=== PATIENT | female | born 1975 | race African-American/Black ===

== ENCOUNTER 2016-04-02 07:52 | Inpatient (IN) | payer OTHER ==
[2016-04-01 10:28] VITALS: Ht 162.6 cm; Wt 65.0 kg
[2016-04-02] VITALS (25 sets, daily range): BP systolic 89–120; BP diastolic 46–66; PULSE 66–88; RESP 14–22
[~2016-04-02] VITALS: Ht 162.6 cm; Wt 65.0 kg
[~2016-04-02 07:52] MED LIST: ACETAMINOPHEN 1000 MG/100 ML IVPB ONE; DEXAMETHASONE 4 MG/ML 1 ML INJ ONE
[2016-04-02] MEDS ORDERED: HYDR-906 PO (08:25)
[2016-04-02] MEDS ORDERED: CYCL5TAB PO (08:25)
[2016-04-02] MEDS ORDERED: CEFAZOLIN 2 GM/50 ML (PMX) 50 ML IVPB SCH (09:00)
[2016-04-02] MEDS ORDERED: LACTATED RINGER'S 1,000 ML IV* SCH (09:00)
[2016-04-02] MEDS ORDERED: THROMBIN 5000 UNIT VIAL ONE (10:02)
[2016-04-02] MEDS ORDERED: GELATIN SIZE 100 SPONGE ONE (10:02)
[2016-04-02] MEDS ORDERED: POLYMYXIN/BACITRACIN 1L IRRIG ONE (10:02)
[2016-04-02] MEDS ORDERED: BUPIVACAINE 0.25% (MPF) 10 ML 10 ML VIAL ONE (10:02)
[2016-04-02] MEDS ORDERED: PROPOFOL 100 ML ONE (10:25)
[2016-04-02] MEDS ORDERED: ROCURONIUM 50 MG INJ ONE (10:26)
[2016-04-02] MEDS ORDERED: LIDOCAINE 2% (SDV) 5 ML INJ ONE (10:26)
[2016-04-02] MEDS ORDERED: SUCCINYLCHOLINE CHLORIDE 100 MG/5 ML SYG IV ONE (10:26)
[2016-04-02] MEDS ORDERED: MIDAZOLAM 1 MG/ML 2 ML INJ ONE (10:28)
--- NOTE | 2016-04-02 10:28 | HPN ---
Date/Time of Note Date/Time of Note DATE: 04/02/16 TIME: 10:28 Interval H&P Admission Note Pt. seen H&P reviewed: No system changes JASON LAINEZ MD Apr 02, 2016 10:28
[2016-04-02] MEDS ORDERED: hydrALAzine 20 MG INJ ONE (11:06)
[2016-04-02] MEDS ORDERED: LABETALOL HCL 20MG INJ ONE (11:27)
[2016-04-02] MEDS ORDERED: ONDANSETRON 4 MG INJ ONE (11:42)
[2016-04-02] MEDS ORDERED: NEOSTIGMINE 3 MG/3 ML SYRINGE ONE (11:57)
[2016-04-02] MEDS ORDERED: GLYCOPYRROLATE 1 MG INJ ONE (11:57)
--- NOTE | 2016-04-02 12:21 | RADRPT ---
PROCEDURE: XR Lumbar Spine one view. CLINICAL INDICATION: Low back pain. Intraoperative. TECHNIQUE: Prone portable cross-table lateral. COMPARISON: No prior studies are available for comparison. FINDINGS: For the purposes of this report, the last apparent true disc level is considered to be L5-S1. Based on this, the posterior needle markers are present at the L4 level and the L5-S1 level. IMPRESSION: 1. Intraoperative imaging as described above. RPTAT: QQ .Catracho Garcia MD, MD Date Time Electronically viewed and signed by .Catracho Garcia MD, MD on 04/02/2016 12:21 .R/
--- NOTE | 2016-04-02 12:21 | RADRPT ---
PROCEDURE: XR Lumbar Spine one view. CLINICAL INDICATION: Low back pain. Intraoperative. TECHNIQUE: Prone portable cross-table lateral. COMPARISON: Prior study done earlier the same day. FINDINGS: For the purposes of this report, the last apparent true disc level is considered to be L5-S1. Based on this, the posterior surgical instrument is present overlying the L5-S1 level. IMPRESSION: 1. Intraoperative imaging as described above. RPTAT: QQ .Catracho Garcia MD, MD Date Time Electronically viewed and signed by .Catracho Garcia MD, on 04/02/2016 12:21 .R/
[2016-04-02] MEDS: HYDROmorphONE (0.2 MG/ML) 10ML SYG IV PRN ×3 (12:28→12:42)
[2016-04-02] MEDS: HYDROmorphONE 0.2 MG/ML PCA IV SCH ×2 (12:29→22:01)
[2016-04-02] MEDS ORDERED: NALOXONE (0.4 MG/ML) INJ IV PRN (12:30)
[2016-04-02] MEDS ORDERED: ZOLPIDEM 5 MG TAB PO PRN (12:30)
[2016-04-02] MEDS ORDERED: DIAZEPAM 5 MG/ML SYG IM PRN (12:30)
[2016-04-02] MEDS ORDERED: HYDROmorphONE (0.2 MG/ML) 10ML SYG IV PRN ×2 (12:30)
[2016-04-02] MEDS ORDERED: BETHANECHOL 25 MG TAB PO PRN (12:30)
[2016-04-02] MEDS ORDERED: DIAZEPAM 5 MG TAB PO PRN (12:30)
[2016-04-02] MEDS ORDERED: CEPASTAT LOZENGE MT PRN (12:30)
[2016-04-02] MEDS ORDERED: FENTAnyl 50 MCG/ML VIAL IV PRN ×3 (12:30)
[2016-04-02] MEDS ORDERED: NACL 0.9% 3 ML SYG IV SCH (12:30)
[2016-04-02] MEDS ORDERED: LABETALOL HCL 20MG INJ IV PRN (12:30)
[2016-04-02] MEDS ORDERED: ACETAMINOPHEN 325 MG TAB PO PRN (12:30)
[2016-04-02] MEDS ORDERED: MEPERIDINE 25 MG INJ IV PRN (12:30)
[2016-04-02] MEDS ORDERED: hydrALAzine 20 MG INJ IV PRN (12:30)
[2016-04-02] MEDS ORDERED: AL HYDROX/MG HYDROX/SIMETH 30 ML CUP PO PRN (12:30)
[2016-04-02] MEDS ORDERED: DIPHENHYDRAMINE 50 MG CAP PO PRN (12:30)
[2016-04-02] MEDS ORDERED: ONDANSETRON 4 MG INJ IV PRN (12:30)
--- NOTE | 2016-04-02 13:18 | OPR ---
DATE OF OPERATION: 04/02/2016 PREOPERATIVE DIAGNOSIS: Herniated disk, L5 to S1 on the right. POSTOPERATIVE DIAGNOSIS: Herniated disk, L5 to S1 on the right. OPERATION PROCEDURES: 1. Right hemilaminotomy, L5. 2. Microdiskectomy, L5 to S1 on the right. 3. Medial facetectomy and foraminotomy, L5 to S1 on the right. 4. Cosmetic wound closure (2.6 cm). 5. Lateral localized lumbar radiographs (2). 6. Intraoperative nerve monitoring (45 minutes) SURGEON: Prasanna Gonzalez MD ENVIRONMENTAL SCIENTISTS: MICHELLE Todd ANESTHESIA: General endotracheal. ANESTHESIOLOGIST: Simón Kothari MD ESTIMATED BLOOD LOSS: 10 mL, none replaced. DRAINS: Two medium Hemovac drains deployed. COMPLICATIONS: None. PERTINENT HISTORY AND PHYSICAL: This is a 40-year-old female with persistent back and right leg arlyn n which has been unrelieved by conservative management following industrial injury of 11/16/2015. S he has had appropriate care since that time, has remained symptomatic. She has undergone a number o f diagnostic studies including an MRI of the lumbar spine which demonstrated herniation of the L5 to S1 disk on the right. Treatment options were discussed with the patient, she elected to proceed wi th surgery. OPERATIVE FINDINGS AT SURGERY: A moderate right paracentral herniation at L5 to S1 was confirmed. The baseline intraoperative nerve monitoring revealed a decrease in the right L5 potential of 40%, a nd the right S1 potential of 30%. These both returned to normal at the completion of surgery. OPERATIVE PROCEDURE: With the patient in supine position after satisfactory induction of general en dotracheal anesthesia by Dr. Kothari, the patient was turned to the prone kneeling position over the [facility] frame. All pressure points were carefully padded. The back was prepped and draped in the [facility] sterile fashion. Athrombic pumps were applied to the legs below the knees to prevent venous sta sis during and after the procedure. Two spinal needles were placed next to what was felt to be the L4 and L5 spinous processes, lateral roentgenogram was taken to confirm anatomic localization. A 2.6 cm incision was then carried out in the midline over the spinous process of L5 after the skin was infiltrated with 0.25% Marcaine without epinephrine for postoperative analgesia. Superficial re tractors were placed and hemostasis secured with electrocautery. Throughout the procedure, copious amounts of antibacterial irrigating solution were used to periodically irrigate the wound. The fasc ia was then incised in the midline with a hot knife and unilateral subperiosteal dissection carried out at L5 to S1 on the right. Deep retractors were placed and deep hemostasis secured with electroc autery. A second intraoperative radiograph was taken with a deep retractor at what was felt to be t he L5 to S1 interspace, and this was confirmed with the second x-ray. A right hemilaminotomy of L5 was then carried out using Leksell rongeur, Kerrison punches and curettes. Ligamentum flavum was ex cised with sharp dissection. The operating microscope was then moved into place. A medial facetect piotr and foraminotomy was accomplished using small hand osteotome, mallet, Kerrison punches and curet grecia. The S1 root was then mobilized medially and protected with D'Errico nerve retractor using micr odissection technique. This revealed a herniation of the L5 to S1 disk on the right. A 15 blade kn leo was then used to cut a rectangular window in the annulus and posterior longitudinal ligament and multiple degenerative disk fragments were harvested with pituitary rongeurs and sent to laboratory for pathologic study. Additional fragments were harvested using Gregoria curettes. A thorough searc h of the floor of the canal was made with an arthroscopic probe and no additional fragments were enc ountered. The epidural hemostasis was secured with bipolar electrocautery on a low setting. The an esthesiologist then asked to perform a Valsalva maneuver at 40 mmHg and no spinal fluid leak was not ed. The wound was then closed in layers over 2 medium Hemovac drains, one below the fascia, one above th e fascia using #1 Vicryl [id number] approximating sutures in deep paralumbar musculature and de ep fascia of the back, 2-0 Vicryl subcuticular cosmetic closing suture, 2-0 Vicryl sutures on the srivastava bcutaneous tissue, and a 4-0 Vicryl subcuticular cosmetic closing suture on the skin. Dermabond and sterile compressive dressings were applied. Patient having tolerated the procedure well, was then turned to the supine position onto her bed and extubated by Dr. Kothari. She was transported to [facility] room in satisfactory condition. At the conclusion of the procedure, sponge, instrument, and need le counts were all correct. NEED FOR MARINE ENGINEERING TECHNICIANS: During this spinal surgical procedure, my assistant pastry chef was used to retrac t and protect the spinal nerves and dural sac. My assistant pastry chef also employed the suction catheters to e vacuate blood from the surgical field to improve visualization of the neural structures. The assista nt was medically necessary to facilitate the completion of the surgery in a safe and expeditious man ner. [facility] [place] regulations, as well as hospital bylaws, preclude the use of non-licensed [facility] care personnel such as operating room technicians, to perform these functions. Throughout the procedure, neural monitoring was carried out by [email or web address] [place] including EMG, SSEP and MEP monitoring of the L3, L4, L5 and S1 nerve roots bilaterally along with s tawnya cord potentials. These were interpreted by a neurologist employed by [employer]. Dictated By: PRASANNA GONZALEZ MD TM/NTS Conf#: [id number] DID#: [id number] CC: NICANOR SCHAEFER DO;*EndCC*
[2016-04-02] MEDS: DEXTROSE 5%-0.45% NACL 1,000 ML IV SCH ×2 (13:45→23:11)
--- NOTE | 2016-04-02 14:11 | PN ---
Date/Time of Note Date/Time of Note DATE: 04/02/16 TIME: 14:05 Assessment/Plan VTE Prophylaxis VTE Prophylaxis Intervention: anti-embolic stocking Lines/Catheters IV Catheter Type (from Nrsg): Saline Lock Assessment/Plan Assessment/Plan Status Post lumbar disectomy. Continue post operative care as per Dr Gonzalez. PT will ambulate patient this afternoon. Subjective 24 Hr Interval Summary Free Text/Dictation The patient is a pleasant 40 y/o female who had lumbar discectomy this morning due to a prior work related lumbar injury. She is alert and has the expected post operative pain. She is comfortable. She has no otehr complaints. Musculoskeletal: back pain Exam/Review of Systems Vital Signs Vitals Vital Signs Date Time Temp Pulse Resp B/P Pulse Ox O2 Delivery O2 Flow Rate FiO2 04/02/16 13:40 97.8 88 18 101/50 98 Room Air Exam Psych: nl mood/affect Head: normocephalic Eyes: EOMI Respiratory: clear to auscultation, normal air movement Cardiovascular: nl pulses, regular rate and rhythm Gastrointestinal: nl liver, spleen, non-tender, soft Musculoskeletal: nl extremities to inspection Neurological: nl mental status Medications Medications Current Medications Dextrose/Sodium Chloride (D5-1/2ns) 1,000 ml @ 100 mls/hr Q10H IV Last administered on 04/02/16t 13:45; Admin Dose 100 MLS/HR; Start 04/02/16 at 12:06 Acetaminophen/ Hydrocodone Bitart ([place] (5/325)) 1 tab Q4H PRN PO PAIN LEVEL 1 -5; Start 04/02/16 at 17:00 Acetaminophen/ Hydrocodone Bitart 2 tab 2 tab Q4H PRN PO PAIN LEVEL 6-10; Start 04/02/16 at 17:00 Cefazolin Sodium (Ancef 1 Gm/50 ml (Pmx)) 50 ml @ 100 mls/hr Q6 IVPB ; Start at 18:00; Stop 04/03/16 at 12:29 Zolpidem Tartrate (Ambien) 5 mg HS PRN PO INSOMNIA; Start 04/02/16 at 12:30 Prochlorperazine (Compazine) 10 mg Q4H PRN PO NAUSEA AND/OR VOMITING; Start at 17:00 Trimethobenzamide HCl (Tigan) 200 mg Q4H PRN IM NAUSEA AND/OR VOMITING; Start 04/02/16 at 17:00 Ondansetron HCl (Zofran Inj) 4 mg Q6H PRN IV NAUSEA AND/OR VOMITING; Start at 17:00 Al Hydrox/Mg Hydrox/Simethicone (Mag-Al Plus) 15 ml Q4H PRN PO CONSTIPATION; Start 04/02/16 at 12:30 Docusate Sodium (Colace) 100 mg BID PO ; Start 04/03/16 at 09:00 Acetaminophen (Tylenol Tab) 650 mg Q4H PRN PO TEMP GREATER THAN 101F OR DIEZ; Start 04/02/16 at 12:30 Ascorbic Acid (Vitamin C) 1,000 mg BID PO ; Start 04/03/16 at 09:00 Ferrous Sulfate (Ferrous Sulfate (Ec)) 325 mg TID PO ; Start 04/03/16 at 09:00 Ranitidine HCl (Zantac) 150 mg BID PO ; Start 04/02/16 at 21:00 Diazepam (Valium) 5 mg Q4H PRN PO MUSCLE SPASMS; Start 04/02/16 at 12:30 Diazepam (Valium) 5 mg Q4H PRN IM MUSCLE SPASMS; Start 04/02/16 at 12:30 Phenol (Cepastat Lozenge) 1 lozenge PRN PRN MT SORE THROAT; Start 04/02/16 at 12:30 Bethanechol Chloride (Urecholine) 25 mg PRN PRN PO UNABLE TO VOID; Start at 12:30 Diphenhydramine HCl (Benadryl) 50 mg Q6H PRN PO PRURITUS; Start 04/02/16 at 12: 30 Hydromorphone HCl (Dilaudid SALES CONSULTANT) Q4PCA IV Last administered on 04/02/16t 12:29 ; Admin Dose 6 MG; Start 04/02/16 at 12:30 Naloxone HCl (Narcan) 0.2 mg Q2M PRN IV RR 8 BREATHS/MIN OR LESS; Start at 12:30 NICANOR SCHAEFER MD Apr 02, 2016 14:11
[2016-04-02] MEDS ORDERED: TRIMETHOBENZAMIDE 100 MG/ML VIAL IM PRN (17:00)
[2016-04-02] MEDS ORDERED: HYDROCODONE/APAP (5/325) TAB PO PRN ×2 (17:00)
[2016-04-02] MEDS ORDERED: PROCHLORPERAZINE 10 MG TAB PO PRN (17:00)
[2016-04-02] MEDS: ONDANSETRON 4 MG INJ IV PRN ×2 (17:35→23:11)
[2016-04-02] MEDS: CEFAZOLIN 1 GM/50 ML (PMX) 50 ML IVPB SCH ×2 (17:35→23:11)
[2016-04-02] MEDS: RANITIDINE 150 MG TAB PO SCH (23:11)
[2016-04-03] MEDS: HYDROmorphONE 0.2 MG/ML PCA IV SCH (04:34)
[2016-04-03 05:32] LABS: HEMATOCRIT 37.3 % (37.0-47.0); HEMOGLOBIN 12.7 g/dl (12.0-16.0)
[2016-04-03 05:59] LABS: POTASSIUM 3.7 mmol/L (3.5-5.1)
[2016-04-03 06:01] LABS: CREATININE 0.55 mg/dl (0.44-1.00)
[2016-04-03 06:02] LABS: CALCIUM 8.4 mg/dl (8.4-10.2)
[2016-04-03] MEDS: CEFAZOLIN 1 GM/50 ML (PMX) 50 ML IVPB SCH ×2 (06:06→11:28)
[2016-04-03] MEDS: ONDANSETRON 4 MG INJ IV PRN ×2 (06:10→12:56)
--- NOTE | 2016-04-03 07:24 | PN ---
Date/Time of Note Date/Time of Note DATE: 04/03/16 TIME: 07:22 Assessment/Plan Lines/Catheters IV Catheter Type (from Nrsg): Saline Lock Puckett in Place (from Nrsg): No Subjective 24 Hr Interval Summary Patient is postop day #1 for microdiscectomy L5-S1 on the right. She had episodes of emesis. Her sodium is 134. Hemoglobin 12.7. Vital signs are stable. She feels better this morning. Back pain is well controlled and leg pain is improving. Hemovac drain was 20 cc overnight and I removed this, incision is healing well. Strength in the right anterior tib and EHL is 4/5. Will DC DIRECTOR OF STUDENT SERVICES, which was likely contributing to her emesis. Plan today is for mobilization and possible discharge if she is able to tolerate activity and diet. Exam/Review of Systems Vital Signs Vitals Vital Signs Date Time Temp Pulse Resp B/P Pulse Ox O2 Delivery O2 Flow Rate FiO2 04/03/16 04:01 17 04/02/16 20:30 98.5 81 100/59 100 04/02/16 13:40 Room Air Intake and Output 04/02/16 04/02/16 04/03/16 15:00 23:00 07:00 Intake Total 1600 ml 1080 ml 1800 ml Output Total 95 ml 280 ml Balance 1505 ml 1080 ml 1520 ml Results Result Diagram: 04/03/16 0424 04/03/16 0424 BABAR ROA Apr 03, 2016 07:24
[2016-04-03 08:02] VITALS: BP 105/53; RESP 16
[2016-04-03] MEDS: DEXTROSE 5%-0.45% NACL 1,000 ML IV SCH (08:06)
[2016-04-03] MEDS: FERROUS SULFATE (EC) 325 MG TAB PO SCH ×2 (08:57→13:00)
[2016-04-03] MEDS: RANITIDINE 150 MG TAB PO SCH (08:57)
[2016-04-03] MEDS ORDERED: ASCORBIC ACID 500 MG TAB PO SCH (09:00)
[2016-04-03] MEDS ORDERED: DOCUSATE SODIUM 100 MG CAP PO SCH (09:00)
[2016-04-03] MEDS ORDERED: HYDROmorphONE 1 MG/ML SYG IV PRN (10:30)
[2016-04-03] MEDS ORDERED: METOCLOPRAMIDE 10 MG INJ IV PRN (11:30)
--- NOTE | 2016-04-03 15:28 | PN ---
Date/Time of Note Date/Time of Note DATE: 04/03/16 TIME: 15:14 Assessment/Plan VTE Prophylaxis VTE Prophylaxis Intervention: SCD's Lines/Catheters IV Catheter Type (from Nrs): Peripheral IV Urinary Cath still in place: No Assessment/Plan Assessment/Plan Status post lumbar discectomy L5-S1. No reported persistence of nausea or vomiting. The patient has improved, off of CUT OFF SAW OPERATOR and Hemovac. Tolerating PO food and pain medications. Able to ambulate independently. Continue post operative care as per Dr. Gonzalez. Discharge as per surgical team. Subjective 24 Hr Interval Summary Free Text/Dictation The patient is a pleasant 40 y/o female s/p microdiscectomy L5-S1 on 04/02/[address] Gonzalez for her work related lumbar injury. The patient was nauseaous and vomited this morning. She recieved Zofran and Reglan with good control of her symptoms. Dilaudid CUT OFF SAW OPERATOR was discontinue as it was suspected to be the culprit due to over use. The patient is tolerating PO hydrocodone-APAP 5-325mg with good pain control. She has been able to micturate. No BM yet. Hermovac was removed this morning. She continues to be on IV NS @100ml/hr. Constitutional: improved, no complaints Respiratory: no complaints Cardiovascular: no complaints Gastrointestinal: flatus, no complaints, No blood, No constipation, No diarrhea, No nausea, No passing stool, No vomiting Musculoskeletal: back pain, No swelling Neurologic: focal-weakness Psychological: nl mood/affect, no complaints Exam/Review of Systems Vital Signs Vitals Vital Signs Date Time Temp Pulse Resp B/P Pulse Ox O2 Delivery O2 Flow Rate FiO2 04/03/16 08:02 98.1 63 16 105/53 97 04/02/16 13:40 Room Air Intake and Output 04/02/16 04/02/16 04/03/16 15:00 23:00 07:00 Intake Total 1600 ml 1080 ml 1800 ml Output Total 95 ml 280 ml Balance 1505 ml 1080 ml 1520 ml Exam Constitutional: alert, oriented, well developed, No distress Respiratory: clear to auscultation, normal air movement, No congested cough, No crackles/rales, No wheezing Cardiovascular: nl pulses, regular rate and rhythm, No bruits, No gallop, No murmurs/extra sounds, No rub Gastrointestinal: bowel sounds, nl liver, spleen, non-tender, soft, No distended, No rebound or guarding Musculoskeletal: nl extremities to inspection, other (Pain around the surgical site at the lower lumbar region L5-S1) Extremities: normal pulses, No calf tenderness, No edema, No tenderness Neurological: STATE PATROL OFFICER II-XII intact, DTR's symmetric, focal weakness (EHL weakness noted on the right 4+/5. Normal sensations bilaterally.), nl mental status, nl speech, nl strength, No numbness Skin: other (Surgical site does not appear infected. No bleeding or discharge. No Hemovac.) Results Result Diagram: 04/03/1642304/03/16423 Results 24 hrs Laboratory Tests Test 04/03/16 04:24 Anion Gap 12 Blood Urea Nitrogen 4 L Calcium Level 8.4 Carbon Dioxide Level 25 Chloride Level 101 Creatinine 0.55 Glucose Level 112 Hematocrit 37.3 Hemoglobin 12.7 Potassium Level 3.7 Sodium Level 134 L Medications Medications Current Medications Dextrose/Sodium Chloride (D5-1/2ns) 1,000 ml @ 100 mls/hr Q10H IV Last administered on 04/02/16 23:11; Admin Dose 100 MLS/HR; Start 04/02/16 at 12:06 Acetaminophen/ Hydrocodone Bitart ([place] (5/325)) 1 tab Q4H PRN PO PAIN LEVEL 1 -5 Last administered on 04/03/16 14:54; Admin Dose 1 TAB; Start 04/02/16 at 17: 00 Acetaminophen/ Hydrocodone Bitart ([place] (5/325)) 2 tab Q4H PRN PO PAIN LEVEL 6 -10; Start 04/02/16 at 17:00 Zolpidem Tartrate (Ambien) 5 mg HS PRN PO INSOMNIA; Start 04/02/16 at 12:30 Prochlorperazine (Compazine) 10 mg Q4H PRN PO NAUSEA AND/OR VOMITING; Start at 17:00 Trimethobenzamide HCl (Tigan) 200 mg Q4H PRN IM NAUSEA AND/OR VOMITING Last administered on 04/03/16 09:17; Admin Dose 200 MG; Start 04/02/16 at 17:00 Ondansetron HCl (Zofran Inj) 4 mg Q6H PRN IV NAUSEA AND/OR VOMITING Last administered on 04/03/16 12:56; Admin Dose 4 MG; Start 04/02/16 at 17:00 Al Hydrox/Mg Hydrox/Simethicone (Mag-Al Plus) 15 ml Q4H PRN PO CONSTIPATION; Start 04/02/16 at 12:30 Docusate Sodium (Colace) 100 mg BID PO ; Start 04/03/16 at 09:00 Acetaminophen (Tylenol Tab) 650 mg Q4H PRN PO TEMP GREATER THAN 101F OR DIEZ; Start 04/02/16 at 12:30 Ascorbic Acid (Vitamin C) 1,000 mg BID PO ; Start 04/03/16 at 09:00 Ferrous Sulfate (Ferrous Sulfate (Ec)) 325 mg TID PO ; Start 04/03/16 at 09:00 Ranitidine HCl (Zantac) 150 mg BID PO Last administered on 04/02/16 23:11; Admin Dose 150 MG; Start 04/02/16 at 21:00 Diazepam (Valium) 5 mg Q4H PRN PO MUSCLE SPASMS; Start 04/02/16 at 12:30 Diazepam (Valium) 5 mg Q4H PRN IM MUSCLE SPASMS Last administered on 04/02/16 19:55; Admin Dose 5 MG; Start 04/02/16 at 12:30 Phenol (Cepastat Lozenge) 1 lozenge PRN PRN MT SORE THROAT Last administered on 04/02/16 19:40; Admin Dose 1 LOZENGE; Start 04/02/16 at 12:30 Bethanechol Chloride (Urecholine) 25 mg PRN PRN PO UNABLE TO VOID; Start at 12:30 Diphenhydramine HCl (Benadryl) 50 mg Q6H PRN PO PRURITUS; Start 04/02/16 at 12: 30 Naloxone HCl (Narcan) 0.2 mg Q2M PRN IV RR 8 BREATHS/MIN OR LESS; Start at 12:30 Hydromorphone HCl (Dilaudid) 0.5 mg Q1HWA PRN IV SEVERE PAIN LEVEL 7-10; Start 04/03/16 at 10:30 Metoclopramide HCl (Reglan) 10 mg Q6H PRN IV NAUSEA Last administered on 1/26/ 17at 11:28; Admin Dose 10 MG; Start 04/03/16 at 11:30 LINDA BOSS Apr 03, 2016 15:26
== END 2016-04-03 18:45 | disposition home or self-care (01) | DRG 520 ==
LOC: REC 07:52 → MS1 13:00
PROVIDERS: ADMIT Orthopaedic Surgery; ATTEND Orthopaedic Surgery
PROC: 0SB40ZZ Excision of Lumbosacral Disc, Open Approach (ICD-10-PCS; principal; 2016-04-02 10:00)
DX: M51.27 Other intervertebral disc displacement, lumbosacral region (principal)
CPT/HCPCS: 72020; 80048; 84703; 85014; 85018; 86850; 86900; 86901; 86920; 97116; 97162; 97530; J0131; J0330; J0360; J0690; J1100; J1170; J2175; J2250; J2405; J2710; J2765; J3010; J3250; J3360; J7042